=== PATIENT | female | born 1970 | race Caucasian/White ===

== ENCOUNTER 2023-09-14 17:05 | Observation (INO) | payer OTHER ==
--- NOTE | 2023-09-14 17:45 | ED ---
Chest Pain HPI - General Chief Complaint: Chest Pain Stated Complaint: Chest Pain Time Seen by Provider: 09/14/23 17:07 Source: patient, EMS Mode of arrival: EMS Limitations: no limitations - History of Present Illness Initial Comments: Patient is a 52-year-old female past medical history smoking presenting today for chest pain x 1 day. Patient states that yesterday she had myalgias and malaise. About midnight last night she began experiencing sharp left-sided chest pain that worsens with coughing and deep breathing. When she coughs or breathes deeply pain also radiates towards her back and into her abdomen. At rest she does not have any pain, with coughing and breathing rates her pain as 8 out of 10. She denies any shortness of breath or difficulty breathing. Denies recent travel, surgeries or hospitalizations. She is not on any OCPs or rest replacement therapy. She is a current smoker. No history DVT or PE, no history of cancers. No history of ACS, stroke or diabetes. She states she has been taking her blood sugar at work recently and has been running "high". She states in the 300-400s and has made an appointment with her primary care provider on 26 September for further workup of this. She currently denies any nausea, vomiting. States a few days ago she coughed up greenish sputum, no hemoptysis. States that today she feels that she is noticed tingling in her fingertips bilaterally and over the last 2 months feels like she has had tingling in the tips of her toes. No slurred speech or facial droop. No medications prior to arrival. Denies fevers, chills, endorses hot flashes. -: days(s) (1) - Related Data Home Medications Medication Instructions Recorded Confirmed No Known Home Medications 09/14/23 09/14/23 Allergies Allergy/AdvReac Type Severity Reaction Status Date / Time No Known Allergies Allergy Verified 09/14/23 20:18 Review of Systems ROS Statement: Those systems with pertinent positive or pertinent negative responses have been documented in the HPI. ROS Other: All systems not noted in ROS Statement are negative. Constitutional: Reports: as per HPI Respiratory: Reports: cough. Denies: dyspnea, wheezes, hemoptysis Cardiovascular: Reports: as per HPI, chest pain. Denies: edema Gastrointestinal: Reports: abdominal pain (Right upper quadrant). Denies: nausea, vomiting, diarrhea, melena, hematochezia Musculoskeletal: Reports: myalgia EKG Findings - EKG Results: EKG: sinus rhythm, normal axis, normal QRS, normal ST/T Past Medical History Past Medical History: No Reported History History of Any Multi-Drug Resistant Organisms: None Reported Past Surgical History: Ablation, Section Additional Past Surgical History / Comment(s): Uterine ablation Past Psychological History: No Psychological Hx Reported Smoking Status: Current every day smoker Past Alcohol Use History: Occasional Past Drug Use History: None Reported General Exam Limitations: no limitations General appearance: alert, in no apparent distress Head exam: Present: atraumatic Eye exam: Present: normal appearance, PERRL ENT exam: Present: normal oropharynx, mucous membranes moist Respiratory exam: Present: normal lung sounds bilaterally. Absent: respiratory distress, wheezes, rales, rhonchi, stridor, decreased breath sounds Cardiovascular Exam: Present: regular rate, normal rhythm, normal heart sounds Expanded Peripheral pulses: 2+: Radial (R), Radial (L) GI/Abdominal exam: Present: soft, tenderness, guarding, normal bowel sounds. Absent: distended, organomegaly, mass Expanded GI/Abdominal exam: Present: Vilchis's sign Extremities exam: Present: normal inspection, full ROM. Absent: calf tenderness Neurological exam: Present: alert, oriented X3 Psychiatric exam: Present: normal affect, normal mood Course Vital Signs 09/14/23 09/14/23 09/14/23 17:13 18:05 19:03 Temperature 99.0 F 98.6 F Pulse Rate 95 89 96 Respiratory 18 17 16 Rate Blood Pressure 127/72 117/68 129/70 O2 Sat by Pulse 100 100 99 Oximetry - Reevaluation(s) Reevaluation #1: Patient noted to have ketones and glucose in her urine. Chest x-ray reviewed by myself and read by radiologist. Radiologist reads left upper lobe pneumonia versus mass. Further characterize with CT. CT is currently pending. I evaluated chest x-ray and agree with radiologist findings, I see noted likely pneumonia. Patient's temperature on arrival 99 degrees, heart rate 92, she does a leukocytosis so does meet SIRS criteria. Ordered blood cultures x 2, Rocephin and azithromycin. 09/14/23 18:59 Reevaluation #2: CT PE study shows an irregular mass in the anterior left upper lung field, correlate for pneumonia underlying mass should be considered measures approximately 6 cm follow-up for clearing is recommended. Given leukocytosis and patient's symptoms suspect pneumonia. CT abdomen shows moderate fatty infiltration of the liver 09/14/23 19:24 Reevaluation #3: 09/14/23 19:53 Updated patient to findings including DKA, pneumonia and CT findings. We discussed importance of following up on her CT chest findings of possible mass of likely pneumonia, within the next 6 months for reassessment. We discussed plan for admission for new onset DKA and sepsis. Patient agreeable with plan. Discussed with Denae, admitting [facility] with these [place] hospitalist, accepts her admission Chest Pain MDM - MDM Was pt. sent in by a medical professional or institution (, PA, INGOT HEADER, urgent care, hospital, or penitentiary...) When possible be specific @ -No Did you speak to anyone other than the patient for history (EMS, parent, family, police, friend...)? What history was obtained from this source @ -No Did you review nursing and triage notes (agree or disagree)? Why? @ -I reviewed and agree with nursing and triage notes Were old charts reviewed (outside hosp., previous admission, EMS record, old EKG, old radiological studies, urgent care reports/EKG's, penitentiary records)? Report findings @No recent old charts to review, only prior visit noted was in 2019 for mammogram Differential Diagnosis (chest pain, altered mental status, abdominal pain women, abdominal pain men, vaginal bleeding, weakness, fever, dyspnea, syncope, headache, dizziness, GI bleed, back pain, seizure, CVA, palpatations, mental health, musculoskeletal)? @ -Differential Diagnosis: ASC, NSTEMI, STEMI, USA, PE, pneumonia, sepsis, trauma, pleurisy, costochondirits, percarditis, endocarditis EKG interpreted by me (3pts min.). @ -Sinus rhythm Rate 92 bpm Normal intervals Normal axis No STEMI X-rays interpreted by me (1pt min.). @ -Yes chest x-ray interpreted by myself, left upper lobe pneumonia noted CT interpreted by me (1pt min.). @Yes consolidation in left upper lobe noted, fatty infiltration liver, no other acute intra-abdominal or intrathoracic abnormalities noted U/S interpreted by me (1pt. min.). @ -None done What testing was considered but not performed or refused? (CT, X-rays, U/S, labs)? Why? @ -None What meds were considered but not given or refused? Why? @ -None Did you discuss the management of the patient with other professionals (professionals i.e. , PA, INGOT HEADER, lab, RT, psych nurse, high school social studies teacher, gold and silver assayer, teacher, financial officer, family independence case manager)? Give summary @ -No Was smoking cessation discussed for >3mins.? @ -No Was critical care preformed (if so, how long)? @ -Yes 35 minutes Were there social determinants of health that impacted care today? How? (Homelessness, low income, unemployed, alcoholism, drug addiction, transportation, low edu. Level, literacy, decrease access to med. care, retirement, rehab)? @ -No Was there de-escalation of care discussed even if they declined (Discuss DNR or withdrawal of care, Hospice)? DNR status @ -No What co-morbidities impacted this encounter? (DM, HTN, Smoking, COPD, CAD, Cancer, CVA, ARF, Chemo, Hep., AIDS, mental health diagnosis, sleep apnea, morbid obesity)? @ -None Was patient admitted / discharged? Hospital course, mention meds given and route, prescriptions, significant lab abnormalities, going to OR and other pertinent info. @ -Hospital course Patient seen and assessed on arrival, she is a 52-year-old female resting comfortably no acute distress. Physical exam significant for lungs clear to auscultation bilaterally, 2+ radial pulses bilaterally, skin pink and well- perfused, respirations unlabored, lungs clear to auscultation bilaterally. Abdomen soft with active bowel sounds, guarding and right upper quadrant tenderness noted, no splenomegaly, positive Vilchis sign. Differential diagnoses as above, plan for viral testing, CT angio chest, CT abdomen pelvis with contrast, urinalysis, lipase, magnesium, troponin, EKG, BNP, CMP, CBC, Tylenol, morphine and Zofran. Patient noted to have left upper lobe pneumonia, borderline DKA. Updated patient to findings and plan. Patient admitted to [facility]. Due to DKA labs borderline (glucose 211), insulin gtt and bolus were held to prevent precipitation of hypoglycemia. Sliding scale insulin and maintenance fluids ordered. Undiagnosed new problem with uncertain prognosis? @ -Yes, DKA, pneumonia Drug Therapy requiring intensive monitoring for toxicity (Heparin, Nitro, Insulin, Cardizem)? @ -No Were any procedures done? no Diagnosis/symptom? @ -DKA, sepsis, pneumonia Acute, or Chronic, or Acute on Chronic? @ -Acute Uncomplicated (without systemic symptoms) or Complicated (systemic symptoms)? @ -Complicated Side effects of treatment? @ -No Exacerbation, Progression, or Severe Exacerbation? @ -No Poses a threat to life or bodily function? How? (Chest pain, USA, [place], pneumonia, PE, COPD, DKA, ARF, appy, cholecystitis, CVA, Diverticulitis, Homicidal, Suicidal, threat to staff... and all critical care pts) @ -Yes Critical Care Time Critical Care Time: Yes Total Critical Care Time: 35 Disposition Clinical Impression: Pneumonia Disposition: ADMITTED IP TO THIS [facility] Condition: Good Decision to Admit Reason: Admit from EC
[2023-09-14 17:47] LABS: Basophils % (A) 0 %; Eosinophils # (A) 0.1 k/uL (0-0.7); Eosinophils % (A) 0 %; HGB 13.7 gm/dL (11.4-16.0); Lymphocytes # (A) 2.1 k/uL (1.0-4.8); Lymphocytes % (A) 14 %; MCH 32.6 pg (25.0-35.0); MCHC 31.8 g/dL (31.0-37.0); MCV 102.4 fL (80.0-100.0); Macrocytosis Slight; Mean Platelet Volume 8.5; Monocytes # (A) 0.7 k/uL (0-1.0); Monocytes % (A) 5 %; Neutrophils % (A) 79 %; Platelet Count 209 k/uL (150-450); RDW 12.5 % (11.5-15.5); WBC 15.2 k/uL (3.8-10.6)
[2023-09-14] MEDS: ACETAMINOPHEN TAB 500 MG TAB PO STA (17:49)
[2023-09-14] MEDS: SODIUM CHLORIDE 0.9% 1,000 ML IV ONE (17:50)
[2023-09-14] MEDS: ONDANSETRON 4 MG/2 ML VIAL IVP STA (17:50)
[2023-09-14] MEDS: MORPHINE SULFATE 4 MG/ML SYRINGE IVP STA (17:50)
[2023-09-14 17:57] LABS: ALT 29 U/L (4-34); AST 21 U/L (14-36); African American GFR (CKD) >90 (>60 ml/min/1.73 sqM); Albumin 4.5 g/dL (3.5-5.0); Alkaline Phosphatase 111 U/L (38-126); Amylase 36 U/L (30-110); Anion Gap 18 mmol/L; Blood Urea Nitrogen 9 mg/dL (7-17); Calcium 9.8 mg/dL (8.4-10.2); Carbon Dioxide 15 mmol/L (22-30); Chloride 105 mmol/L (98-107); Glucose 211 mg/dL (74-99); Lipase 51 U/L (23-300); Non-African American GFR(CKD) >90 (>60 ml/min/1.73 sqM); Potassium 3.5 mmol/L (3.5-5.1); Sodium 138 mmol/L (137-145); Total Bilirubin 0.8 mg/dL (0.2-1.3); Total Protein 7.3 g/dL (6.3-8.2)
[2023-09-14 18:06] LABS: NT-Pro-B-Type Natriuretic Pept 267 pg/mL
[2023-09-14 18:08] LABS: Appearance,Urine Clear (Clear); Bilirubin,Urine Negative (Negative); Blood,Urine Negative (Negative); Color,Urine Colorless; Glucose,Urine (UA) 4+ (Negative); Leukocyte Esterase,Urine Negative (Negative); Nitrite,Urine Negative (Negative); PH, Urine 5.5 (5.0-8.0); Protein,Urine Trace (Negative); Specific Gravity,Urine 1.008 (1.001-1.035); Urobilinogen,Urine <2.0 mg/dL (<2.0)
[2023-09-14 18:23] LABS: Ketones,Urine 2+ (Negative)
--- NOTE | 2023-09-14 18:28 | XR ---
EXAMINATION TYPE: XR chest 2V DATE OF EXAM: 09/14/2023 6:13 PM CLINICAL INDICATION:Female, 52 years old with history of Chest Pain; [facility] COMPARISON: None TECHNIQUE: XR chest 2V Frontal view of the chest. FINDINGS: Lungs/Pleura: Left perihilar opacities. Azygous fissure in the right upper lung. There is no evidence of pleural effusion, focal consolidation, or pneumothorax. Pulmonary vascularity: Unremarkable. Heart/mediastinum: Cardiomediastinal silhouette is unremarkable. Musculoskeletal: No acute osseous pathology. IMPRESSION: Left perihilar opacities which should be further evaluated with CT chest. Findings could represent pn eumonia versus mass.
[2023-09-14 18:35] LABS: INR 0.9 (<1.2); Partial Thromboplastin Time 26.6 sec (22.0-30.0); Prothrombin Time 9.7 sec (10.0-12.5)
[2023-09-14 19:02] LABS: Phosphorus 1.7 mg/dL (2.5-4.5)
[2023-09-14 19:03] VITALS: RESP 16
[2023-09-14 19:12] LABS: VBG PH 7.29 (7.31-7.41)
--- NOTE | 2023-09-14 19:16 | CT ---
CTA CHEST EXAMINATION TYPE: CT angio chest DATE OF EXAM: 09/14/2023 INDICATION: generalized chest and abdominal pain CT DLP: 207.1 mGycm, Automated exposure control for dose reduction was used. CONTRAST: Patient injected with 100ml mL of Isovue 370. COMPARISON: None TECHNIQUE: CT of the chest is performed on a spiral scan at 2 mm thick sections. Study is performed with intravenous contrast timed for evaluation for pulmonary embolism. This will limit additional po rtions of the evaluation. 3-D MIP images reconstructed by the technologist are reviewed on the compu ter in the coronal and sagittal planes. FINDINGS: No persistent filling defects are evident to suggest an acute pulmonary embolism. No mediastinal or hilar adenopathy enlarged by CT criteria is evident. The ascending aorta diameter at the level of the main pulmonary artery is 2.9 cm. The main pulmonary artery diameter at the bifurcation is 2.7 cm. There is an irregular mass in the anterior left upper lung field. Correlate for pneumonia. Underlying mass should be considered. This measures approximately 6 cm. Follow-up to clearing is recommended. Limited CT sections were through the upper abdomen. Moderate fatty infiltration liver. IMPRESSION: 1. 6 cm left upper anterior medial consolidation. Correlate for pneumonia. Underlying mass should be considered. Follow-up to clearing is recommended. 2. No acute pulmonary embolism
--- NOTE | 2023-09-14 19:20 | CT ---
EXAMINATION TYPE: CT abdomen pelvis w con DATE OF EXAM: 09/14/2023 COMPARISON: INDICATION: generalized chest and abdominal pain DLP: 760.2 mGycm, Automated exposure control for dose reduction was used. CONTRAST: 100ml mL of Isovue 370. Study performed without Oral Contrast TECHNIQUE: Axial images were obtained from above the diaphragm to the pubic rami in the axial plane a t 5 mm thick sections. Reconstructed images are reviewed on the computer in the coronal plane. FINDINGS: Limited CT sections are obtained the lung bases. The lung bases are clear. Please see CT chest same date CT ABDOMEN: Liver: Moderate fatty infiltration of liver no discrete masses are identified Spleen: Normal Pancreas: Normal Adrenal glands: The adrenal glands are normal. Gallbladder: Normal Kidneys: No masses are evident. No hydronephrosis is present. No cysts are present. Delayed images were obtained through the kidneys, which remain unremarkable. Aorta: Mild Vascular calcification is within the aorta. Inferior vena cava: Normal. CT PELVIS: Loops of bowel within the abdomen and pelvis are normal. This study is without oral contrast limi ting bowel evaluation. Appendix: Not identified. No dilated tubular structure or inflammatory changes evident. Urinary bladder: Normal. Genitourinary structures: Osseous structures: No suspicious lytic or sclerotic lesions. IMPRESSION: 1. Moderate fatty infiltration of the liver.
[2023-09-14] MEDS ORDERED: Magnesium Replacement Protocol 1 EACH MISC MISCELLANE PRN (19:26)
[2023-09-14] MEDS ORDERED: DEXTROSE 50% SYRINGE 50 ML IVP PRN ×4 (19:26→20:07)
[2023-09-14] MEDS ORDERED: Potassium Replacement Protocol 1 EACH MISC MISCELLANE PRN (19:26)
[2023-09-14] MEDS ORDERED: IBUPROFEN 400 MG TAB PO PRN (20:07)
[2023-09-14] MEDS ORDERED: NALOXONE 0.4 MG/ML 1 ML VIAL IV PRN (20:07)
[2023-09-14] MEDS ORDERED: ACETAMINOPHEN TAB 325 MG TAB PO PRN (20:07)
[2023-09-14] MEDS: INSULIN REGULAR BOLUS (FROM DRIP BAG) IV ONE (21:11)
[2023-09-14] MEDS: SODIUM CHLORIDE 0.9% 1,000 ML IV STA (21:12)
[2023-09-14] MEDS: cefTRIAXone IN SWFI 1,000 MG/10 ML SYRINGE IVP STA (21:13)
[2023-09-14] MEDS: KETOROLAC 15 MG/ML 1 ML VIAL IVP STA (21:15)
[2023-09-14] MEDS: NICOTINE 14MG/24HR PATCH TRANSDERM SCH (21:16)
[2023-09-14] MEDS: FAMOTIDINE 20 MG TAB PO SCH (21:17)
[2023-09-14] MEDS: AZITHROMYCIN 500 MG in SODIUM CHLORIDE 0.9% 250 ML IVPB STA (21:20)
[2023-09-14] MEDS: SODIUM CHLORIDE 0.9% 1,000 ML IV SCH ×3 (21:20→21:54)
[2023-09-14] MEDS: D5-0.45% NACL WITH KCL 20MEQ/L 1,000 ML IV SCH (21:54)
[2023-09-14] MEDS: INSULIN REGULAR 100 UNIT in SODIUM CHLORIDE 0.9% 100 ML IV SCH (21:54)
[2023-09-15 01:15] LABS: Glucose,Whole Blood 180 mg/dL (70-110)
[2023-09-15 07:29] LABS: Glucose,Whole Blood 178 mg/dL (70-110)
[2023-09-15] MEDS: INSULIN ASPART (NovoLOG) 100 UNIT/ML VIAL SQ SCH (08:25)
[2023-09-15 09:20] LABS: Glucose,Whole Blood 198 mg/dL (70-110)
[2023-09-15 09:34] LABS: INR 0.9 (<1.2)
[2023-09-15 09:38] LABS: Basophils % (A) 0 %; Eosinophils # (A) 0.1 k/uL (0-0.7); Eosinophils % (A) 1 %; HCT 37.5 % (34.0-46.0); HGB 11.9 gm/dL (11.4-16.0); Lymphocytes # (A) 1.3 k/uL (1.0-4.8); Lymphocytes % (A) 13 %; MCH 31.9 pg (25.0-35.0); MCHC 31.6 g/dL (31.0-37.0); MCV 100.9 fL (80.0-100.0); Mean Platelet Volume 8.6; Monocytes # (A) 0.5 k/uL (0-1.0); Monocytes % (A) 5 %; Neutrophils # (A) 7.9 k/uL (1.3-7.7); Neutrophils % (A) 79 %; Platelet Count 201 k/uL (150-450); RBC 3.71 m/uL (3.80-5.40); RDW 12.8 % (11.5-15.5)
[2023-09-15 10:24] LABS: ALT 23 U/L (4-34); AST 20 U/L (14-36); African American GFR (CKD) >90 (>60 ml/min/1.73 sqM); Albumin 3.6 g/dL (3.5-5.0); Alkaline Phosphatase 85 U/L (38-126); Anion Gap 12 mmol/L; Blood Urea Nitrogen 10 mg/dL (7-17); Carbon Dioxide 17 mmol/L (22-30); Chloride 107 mmol/L (98-107); Glucose 193 mg/dL (74-99); Magnesium 1.8 mg/dL (1.6-2.3); Non-African American GFR(CKD) >90 (>60 ml/min/1.73 sqM); Phosphorus 1.7 mg/dL (2.5-4.5); Potassium 3.8 mmol/L (3.5-5.1); Sodium 136 mmol/L (137-145)
[2023-09-15 12:18] LABS: Glucose,Whole Blood 215 mg/dL (70-110)
[2023-09-15] MEDS ORDERED: IPRATROPIUM-ALBUTEROL 3 ML NEB INHALATION PRN (14:20)
--- NOTE | 2023-09-15 14:32 | P.HPIM ---
History of Present Illness Patient is 52-year-old female came with complaints of pleuritic chest pain of the left side found to have pneumonia on the left upper lobe. Patient had flulike symptoms a week to 10 days ago and since yesterday patient was not feeling well felt like she was having fever patient does have leukocytosis. Patient was given antibiotic 1 set of troponin was obtained which was negative EKG is not consistent with acute ST-T wave changes mild nonspecific T waves were evident on the on the EKG patient had a CT of the chest and angiogram of the chest which did not show any pulmonary embolism. Did show pneumonia and underlying mass cannot be ruled out. Patient does smoke about 10 cigarettes/day and only started few years ago. Patient blood sugars has been high at home. Patient had an anion gap and also has glucose in the urine and ketones because of which patient was believed to have diabetic ketoacidosis and was briefly treated for DKA. Patient's anion gap was 18 and patient may have had lactic acidosis from a pneumonia. Patient does not take any medications for diabetes mellitus at home. REVIEW OF SYSTEMS: All other systems are negative except those mentioned in the HPI PHYSICAL EXAMINATION: GENERAL: The patient is alert and oriented x3, not in any acute distress. Well developed, well nourished. HEENT: Pupils are round and equally reacting to light. EOMI. No scleral icterus. No conjunctival pallor. Normocephalic, atraumatic. No pharyngeal erythema. No thyromegaly. CARDIOVASCULAR: S1 and S2 present. No murmurs, rubs, or gallops. PULMONARY: Chest is clear to auscultation, no wheezing or crackles. ABDOMEN: Soft, nontender, nondistended, normoactive bowel sounds. No palpable organomegaly. MUSCULOSKELETAL: No joint swelling or deformity. EXTREMITIES: No cyanosis, clubbing, or pedal edema. NEUROLOGICAL: Gross neurological examination did not reveal any focal deficits. SKIN: No rashes. Assessment and plan -Chest pain: Secondary to left upper lobe pneumonia patient is clinically doing well we will give her another dose of IV antibiotics patient will be discharged with oral antibiotic completely total of 7-day course of antibiotics which is Rocephin and 5 days of azithromycin total. -New onset diabetes mellitus I do not believe patient has insulin deficiency patient is probably type 2 diabetes mellitus patient was started on metformin -Possible lung lesion which cannot be really diagnosed with because of the infiltrate in the left upper lung patient will be referred to pulmonology for this -Nicotine cessation counseling was provided Anion gap metabolic acidosis most probably secondary lactic acidosis rather than DKA. Patient will be discharged today Past Medical History Past Medical History: No Reported History History of Any Multi-Drug Resistant Organisms: None Reported Past Surgical History: Ablation, Section Additional Past Surgical History / Comment(s): Uterine ablation Past Psychological History: No Psychological Hx Reported Smoking Status: Current every day smoker Past Alcohol Use History: Occasional Past Drug Use History: None Reported Medications and Allergies Home Medications Medication Instructions Recorded Confirmed Type Azithromycin [Zithromax Tri-Joon (3 500 mg PO DAILY 3 Days #3 tab 09/15/23 Rx tabs)] cefUROXime axetiL [Ceftin] 500 mg PO BID 10 Days #8 tab 09/15/23 Rx metFORMIN HCL [Glucophage] 500 mg PO BID #60 tab 09/15/23 Rx Allergies Allergy/AdvReac Type Severity Reaction Status Date / Time No Known Allergies Allergy Verified 09/14/23 20:18 Physical Exam Vitals: Vital Signs Temp Pulse Pulse Resp BP Pulse Ox 09/15/23 10:14 99.2 F 82 16 127/73 95 09/15/23 08:25 98.7 F 79 17 124/70 100 09/15/23 06:00 80 16 132/80 98 09/15/23 04:00 72 16 120/72 99 09/15/23 02:00 76 16 131/70 99 09/15/23 01:17 70 09/15/23 01:00 76 16 122/70 98 09/14/23 21:00 81 16 109/62 98 09/14/23 19:03 96 16 129/70 99 09/14/23 18:05 98.6 F 89 17 117/68 100 09/14/23 17:13 99.0 F 95 18 127/72 100 Intake and Output 09/14/23 09/15/23 09/15/23 22:59 06:59 14:59 Other: Weight 68.039 kg Results CBC & Chem 7: 09/15/23 09:14 09/15/23 09:14 Labs: Abnormal Lab Results - Last 24 Hours (Table) 09/14/23 09/14/23 09/14/23 Range/Units 17:29 17:29 17:29 WBC 15.2 H (3.8-10.6) k/uL RBC (3.80-5.40) m/uL MCV 102.4 H (80.0-100.0) fL Neutrophils # 12.0 H (1.3-7.7) k/uL PT 9.7 L (10.0-12.5) sec VBG pH (7.31-7.41) VBG HCO3 (24-28) mmol/L Sodium (137-145) mmol/L Carbon Dioxide 15 L (22-30) mmol/L Creatinine 0.43 L (0.52-1.04) mg/dL Glucose 211 H (74-99) mg/dL POC Glucose (mg/dL) (70-110) mg/dL Plasma Lactic Acid Richy (0.7-2.0) mmol/L Phosphorus (2.5-4.5) mg/dL Total Protein (6.3-8.2) g/dL Urine Protein (Negative) Urine Glucose (UA) (Negative) Urine Ketones (Negative) 09/14/23 09/14/23 09/14/23 Range/Units 17:45 18:27 18:33 WBC (3.8-10.6) k/uL RBC (3.80-5.40) m/uL MCV (80.0-100.0) fL Neutrophils # (1.3-7.7) k/uL PT (10.0-12.5) sec VBG pH 7.29 L (7.31-7.41) VBG HCO3 20 L (24-28) mmol/L Sodium (137-145) mmol/L Carbon Dioxide (22-30) mmol/L Creatinine (0.52-1.04) mg/dL Glucose (74-99) mg/dL POC Glucose (mg/dL) (70-110) mg/dL Plasma Lactic Acid Richy (0.7-2.0) mmol/L Phosphorus 1.7 L (2.5-4.5) mg/dL Total Protein (6.3-8.2) g/dL Urine Protein Trace H (Negative) Urine Glucose (UA) 4+ H (Negative) Urine Ketones 2+ H (Negative) 09/14/23 09/15/23 09/15/23 Range/Units 18:33 01:13 07:27 WBC (3.8-10.6) k/uL RBC (3.80-5.40) m/uL MCV (80.0-100.0) fL Neutrophils # (1.3-7.7) k/uL PT (10.0-12.5) sec VBG pH (7.31-7.41) VBG HCO3 (24-28) mmol/L Sodium (137-145) mmol/L Carbon Dioxide (22-30) mmol/L Creatinine (0.52-1.04) mg/dL Glucose (74-99) mg/dL POC Glucose (mg/dL) 180 H 178 H (70-110) mg/dL Plasma Lactic Acid Richy 2.6 H* (0.7-2.0) mmol/L Phosphorus (2.5-4.5) mg/dL Total Protein (6.3-8.2) g/dL Urine Protein (Negative) Urine Glucose (UA) (Negative) Urine Ketones (Negative) 09/15/23 09/15/23 09/15/23 Range/Units 09:14 09:14 09:18 WBC (3.8-10.6) k/uL RBC 3.71 L (3.80-5.40) m/uL MCV 100.9 H (80.0-100.0) fL Neutrophils # 7.9 H (1.3-7.7) k/uL PT (10.0-12.5) sec VBG pH (7.31-7.41) VBG HCO3 (24-28) mmol/L Sodium 136 L (137-145) mmol/L Carbon Dioxide 17 L (22-30) mmol/L Creatinine 0.38 L (0.52-1.04) mg/dL Glucose 193 H (74-99) mg/dL POC Glucose (mg/dL) 198 H (70-110) mg/dL Plasma Lactic Acid Richy (0.7-2.0) mmol/L Phosphorus 1.7 L (2.5-4.5) mg/dL Total Protein 6.0 L (6.3-8.2) g/dL Urine Protein (Negative) Urine Glucose (UA) (Negative) Urine Ketones (Negative) 09/15/23 Range/Units 12:16 WBC (3.8-10.6) k/uL RBC (3.80-5.40) m/uL MCV (80.0-100.0) fL Neutrophils # (1.3-7.7) k/uL PT (10.0-12.5) sec VBG pH (7.31-7.41) VBG HCO3 (24-28) mmol/L Sodium (137-145) mmol/L Carbon Dioxide (22-30) mmol/L Creatinine (0.52-1.04) mg/dL Glucose (74-99) mg/dL POC Glucose (mg/dL) 215 H (70-110) mg/dL Plasma Lactic Acid Richy (0.7-2.0) mmol/L Phosphorus (2.5-4.5) mg/dL Total Protein (6.3-8.2) g/dL Urine Protein (Negative) Urine Glucose (UA) (Negative) Urine Ketones (Negative)
[2023-09-15] MEDS: AZITHROMYCIN 500 MG TAB PO SCH (14:39)
[2023-09-15] MEDS: ENOXAPARIN 40 MG/0.4 ML SYRINGE SQ SCH (14:44)
[2023-09-15 15:21] VITALS: BP 135/83; PULSE 80; TEMP 98.4
[2023-09-15] MEDS: LACTATED RINGERS 1,000 ML IV SCH (15:23)
[2023-09-15] MEDS ORDERED: INSULIN ASPART (NovoLOG) 100 UNIT/ML VIAL SQ SCH (17:30)
[2023-09-15] MEDS ORDERED: FAMOTIDINE 20 MG TAB PO SCH (21:00)
== END 2023-09-15 18:17 | disposition home or self-care (01) ==
LOC: EC 17:05 → 3SCARD 19:47 → INTOOBSV 19:47 → 3SCARD 20:57
PROVIDERS: ADMIT Hospitalist; ATTEND Hospitalist
DX: A41.9 Sepsis, unspecified organism (principal); J18.9 Pneumonia, unspecified organism; E11.10 Type 2 diabetes mellitus with ketoacidosis without coma; K76.0 Fatty (change of) liver, not elsewhere classified; F17.210 Nicotine dependence, cigarettes, uncomplicated; Z11.52 Encounter for screening for COVID-19; Z11.59 Encounter for screening for other viral diseases; Z71.6 Tobacco abuse counseling
CPT/HCPCS: 96361 ×2; 96366 ×2; 96367; 96376; 96365; 96375; 99291; 36415; 93005; 83880; 80053 ×2; 84443; 82150; 82803; 82009; 83605; 83690; 83735 ×2; 84100 ×2; 84484; 85025 ×2; 85610 ×2; 85730; 81003; 87040; 83036; 87636; 71046; 71275; 74177; G0378; S4990 ×2; J0456; J0696 ×2; J1885; Q9967